=== PATIENT | male | born 2005 | race Caucasian/White ===

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

== ENCOUNTER 2025-05-07 16:08 | Emergency (ER) | payer OTHER ==
[~2025-05-07] VITALS: Ht 170.1 cm; Wt 68.0 kg
[2025-05-07] MEDS ORDERED: SODIUM CHLORIDE 0.9% 500 ML IV ONE (16:45)
[2025-05-07] MEDS ORDERED: MORPHINE Sulfate 2 MG/ML SYR IV ONE (16:45)
[2025-05-07] MEDS ORDERED: Ondansetron Hydrochloride 4 MG/2 ML VIAL IV ONE (16:45)
[2025-05-07 16:56] LABS: BASO % 0.5 % (0.0-1.0); EOS # 0.2 10*3/uL (0.0-0.4); EOS % 2.3 % (1.0-4.0); HEMATOCRIT 48.2 % (42.0-52.0); MEAN CELL VOLUME 85.5 fl (80.0-94.0); MEAN CORPUSCULAR HGB 27.1 pg (27.0-31.0); MEAN CORPUSCULAR HGB CONC 31.7 g/dl (33.0-37.0); MEAN PLATELET VOLUME 8.9 fl (9.6-12.3); MONO # 0.5 10*3/uL (0.1-1.0); MONO % 5.6 % (3.0-9.0); NEUT # 7.1 10*3/uL (2.3-7.9); NEUT % 80.6 % (47.0-73.0); PLATELET COUNT AUTOMATED 248 10*3/uL (130-400); RED BLOOD COUNT 5.64 10*6/uL (4.50-5.90); RED CELL DISTRI WIDTH 12.6 % (0-14.5); WHITE BLOOD COUNT 8.8 10*3/uL (4.8-10.8)
[2025-05-07 17:17] LABS: ALKALINE PHOSPHATASE 117 U/L (46-116); BUN 13 mg/dl (9-23); CHLORIDE 103 mmol/L (98-107); LIPASE 32 U/L (12-53); POTASSIUM 3.8 mmol/L (3.4-5.1); SGPT/ALT 23 U/L (5-49); TOTAL PROTEIN 7.5 gm/dL (6.0-8.0)
[2025-05-07] MEDS ORDERED: REGLAN10 M1 PO (18:34)
[2025-05-07] MEDS ORDERED: Ondansetron4 MG PO (18:34)
[2025-05-07] MEDS ORDERED: Ondansetron Hydrochloride 4 MG TAB PO ONE (18:35)
[2025-05-07] MEDS ORDERED: Metoclopramide Hydrochloride 5 MG TAB PO ONE (18:35)
== END 2025-05-07 18:55 | disposition home or self-care (01) ==
LOC: ED 16:08
PROVIDERS: Emergency Medicine
DX: A08.4 Viral intestinal infection, unspecified (principal); K56.7 Ileus, unspecified; Z79.899 Other long term (current) drug therapy; Z88.0 Allergy status to penicillin; Z88.5 Allergy status to narcotic agent; Z88.6 Allergy status to analgesic agent; Z88.8 Allergy status to other drugs, medicaments and biological substances; Z98.890 Other specified postprocedural states